=== PATIENT | female | born 1950 | race Caucasian/White ===

== ENCOUNTER 2017-08-23 07:38 | Day surgery (SDC) | payer MEDICARE, MEDICAID ==
[~2017-08-23] VITALS: Ht 157.5 cm; Wt 58.6 kg
[~2017-08-23 07:38] MED LIST: AMLO2.5T2 PO; APIX2.5T PO; CHOL100046 PO; DOXA4TAB3 PO; FURO40TA4 PO; LOSA50TA3 PO; METO100T14 PO; POTA20TA19 PO; ROSU20TA PO; SIMV20TA5 PO; SPIR100T PO
[2017-08-23] MEDS ORDERED: LIDOcaine 1%/PF 5ML 10 MG/ML VIAL SQ ONE (08:00)
[2017-08-23] MEDS ORDERED: albumin (human) 25% 100 ML IV solution IV PRN (08:10)
[2017-08-23] MEDS ORDERED: normal saline 1000ml 1,000 ML IV PRN (08:10)
[2017-08-23 08:30] VITALS: BP 147/88
[2017-08-23 08:43] VITALS: BP 147/88
[2017-08-23 08:45] VITALS: BP 135/64
[2017-08-23 08:53] VITALS: BP 137/86
== END 2017-08-23 09:00 | disposition home or self-care (01) ==
LOC: SSTAY O 07:38
PROVIDERS: ATTEND Radiology Vascular & Interventional Radiology
DX: R18.8 Other ascites (principal); I48.91 Unspecified atrial fibrillation; I11.0 Hypertensive heart disease with heart failure; I50.9 Heart failure, unspecified; E78.00 Pure hypercholesterolemia, unspecified; I27.20 Pulmonary hypertension, unspecified; I07.1 Rheumatic tricuspid insufficiency; Z90.710 Acquired absence of both cervix and uterus; Z79.01 Long term (current) use of anticoagulants; Z90.49 Acquired absence of other specified parts of digestive tract; Z98.890 Other specified postprocedural states; Z79.899 Other long term (current) drug therapy
CPT/HCPCS: 49083; A6257; J2001; J7030; A6258

== ENCOUNTER 2017-10-03 07:48 | Day surgery (SDC) | payer MEDICARE, MEDICAID ==
[2017-10-03] VITALS (8 sets, daily range): BP systolic 114–156; BP diastolic 58–94
[~2017-10-03] VITALS: Ht 157.5 cm; Wt 57.8 kg
[~2017-10-03 07:48] MED LIST changes: -SIMV20TA5 PO; -SPIR100T PO
[2017-10-03] MEDS ORDERED: LIDOcaine 1%/PF 5ML 10 MG/ML VIAL SQ ONE (08:00)
[2017-10-03] MEDS ORDERED: albumin (human) 25% 100 ML IV solution IV PRN (08:30)
[2017-10-03] MEDS ORDERED: normal saline 1000ml 1,000 ML IV PRN (08:30)
== END 2017-10-03 09:20 | disposition home or self-care (01) ==
LOC: SSTAY O 07:48
PROVIDERS: ATTEND Radiology Diagnostic Radiology
DX: R18.8 Other ascites (principal); I11.0 Hypertensive heart disease with heart failure; I50.9 Heart failure, unspecified; E78.00 Pure hypercholesterolemia, unspecified; I27.20 Pulmonary hypertension, unspecified; I48.2 Chronic atrial fibrillation; M19.90 Unspecified osteoarthritis, unspecified site; I08.1 Rheumatic disorders of both mitral and tricuspid valves; Z90.710 Acquired absence of both cervix and uterus; Z79.01 Long term (current) use of anticoagulants; Z90.49 Acquired absence of other specified parts of digestive tract; Z88.8 Allergy status to other drugs, medicaments and biological substances; Z79.899 Other long term (current) drug therapy; Z98.890 Other specified postprocedural states
CPT/HCPCS: 49083; J2001; J7030

== ENCOUNTER 2018-06-07 07:42 | Day surgery (SDC) | payer MEDICARE, MEDICAID ==
[~2018-06-07] VITALS: Ht 157.5 cm; Wt 58.4 kg
[~2018-06-07 07:42] MED LIST changes: -ROSU20TA PO; +ROSU20TA2 PO
[2018-06-07 08:00] VITALS: BP 163/99
[2018-06-07] MEDS ORDERED: normal saline 1000ml 1,000 ML IV PRN (08:00)
[2018-06-07] MEDS ORDERED: albumin 25% 100mL bottle x 1 IV PRN (08:00)
--- NOTE | 2018-06-07 08:50 | NUR ---
ULTRASOUND OF ABDOMEN BY Phoebe PANDYA. NO FLUID PER Phoebe PANDYA. ULTRASOUND ONLY. PARACENTESIS CANCELED AND PATIENT D/ONEIL HOME. NO DISTRESS NOTED.
[2018-06-07] MEDS ORDERED: LIDOcaine 1% 30ml preserv. free vial SQ ONE (10:00)
== END 2018-06-07 09:00 | disposition home or self-care (01) ==
LOC: SSTAY O 07:42
PROVIDERS: ATTEND Radiology Vascular & Interventional Radiology
DX: R18.8 Other ascites (principal); Z53.8 Procedure and treatment not carried out for other reasons
CPT/HCPCS: 76705; J3490; J7030

== ENCOUNTER 2022-01-25 10:26 | Day surgery (SDC) | payer MEDICARE, MEDICAID ==
[~2022-01-25] VITALS: Ht 157.5 cm; Wt 59.4 kg
[2022-01-25] VITALS (7 sets, daily range): BP systolic 125–179; BP diastolic 74–92
[~2022-01-25 10:26] MED LIST changes: +POTA-207 PO; -POTA20TA19 PO; -ROSU20TA2 PO
[2022-01-25] MEDS ORDERED: LORazepam 0.5 MG tablet PO PRN (10:55)
[2022-01-25] MEDS ORDERED: normal saline 1,000 ML IV SCH (10:55)
[2022-01-25] MEDS ORDERED: ROSU20TA31 PO (11:00)
[2022-01-25 11:35] LABS: APTT 30 SECONDS (22-32)
[2022-01-25] MEDS ORDERED: FENTANYL CITRATE/PF 50 MCG/1 ML VIAL ONE (14:11)
[2022-01-25] MEDS ORDERED: midazolam 1 mg/ML 2ml injection ONE (14:11)
[2022-01-25] MEDS ORDERED: LIDOcaine 1% 30ml preserv. free vial ONE (14:11)
[2022-01-26 06:30] LABS: ISTAT Hct MIX 38 %PCV (35-45); ISTAT O2 SATURATION MIX VENOUS 65 % (60-80); ISTAT SOURCE VEN
== END 2022-01-25 17:10 | disposition home or self-care (01) ==
LOC: SSTAY O 10:26
PROVIDERS: ATTEND Student in an Organized Health Care Education/Training Program
DX: I11.0 Hypertensive heart disease with heart failure (principal); I50.20 Unspecified systolic (congestive) heart failure; I27.20 Pulmonary hypertension, unspecified; E78.5 Hyperlipidemia, unspecified; Z79.899 Other long term (current) drug therapy; Z98.890 Other specified postprocedural states
CPT/HCPCS: 33289; 36415; 82803; 85014; 85610; 85730; 93005; C1751; C1769; C1894; C2624; J1644; J2250; J3010; J3490; J7030; 99152; 99153; A6258; A6449

== ENCOUNTER 2022-08-10 11:54 | Emergency (ER) | payer MEDICARE, MEDICAID ==
[~2022-08-10] VITALS: Ht 157.5 cm; Wt 65.0 kg
[~2022-08-10 11:54] MED LIST changes: -AMLO2.5T2 PO; -DOXA4TAB3 PO; -LOSA50TA3 PO; +ROSU20TA73 PO
[2022-08-10 12:10] VITALS: BP 166/91
[2022-08-10] MEDS ORDERED: loperamide 2mg capsule PO ONE (12:55)
[2022-08-10] MEDS ORDERED: LOPE1TAB46 PO (13:43)
== END 2022-08-10 13:48 | disposition home or self-care (01) ==
LOC: ER 11:54
DX: R19.7 Diarrhea, unspecified (principal); Z90.49 Acquired absence of other specified parts of digestive tract; Z79.899 Other long term (current) drug therapy
CPT/HCPCS: 99282

== ENCOUNTER 2022-09-13 10:23 | Day surgery (SDC) | payer MEDICARE, MEDICAID ==
[2022-09-09 09:25] LABS: BASOPHILS # (AUTO) 0.1 X10'3 (0-0.2); BASOPHILS % (AUTO) 1.1 % (0-1); EOSINOPHILS # (AUTO) 0.1 X10'3 (0-0.9); EOSINOPHILS % (AUTO) 1.9 % (0-6); HEMATOCRIT 38.6 % (35.0-45.0); HEMOGLOBIN 12.9 g/dl (12.0-16.0); LYMPHOCYTES # (AUTO) 1.7 X10'3 (1.1-4.8); LYMPHOCYTES % (AUTO) 30.3 % (21-51); MEAN CORPUSCULAR HEMOGLOBIN 30.5 PG (27.0-31.0); MEAN CORPUSCULAR HGB CONC 33.4 g/dL (33.0-36.5); MEAN CORPUSCULAR VOLUME 91.4 FL (78-98); MEAN PLATELET VOLUME 8.2 FL (7.4-10.4); MONOCYTES # (AUTO) 0.4 X10'3 (0-0.9); MONOCYTES % (AUTO) 6.9 % (2-12); NEUTROPHILS # (AUTO) 3.4 X10'3 (1.8-7.7); NEUTROPHILS % (AUTO) 59.8 % (42-75); PLATELET COUNT 121 X10'3 (140-440); RED BLOOD COUNT 4.22 X10'6 (4.20-5.60); RED CELL DISTRIBUTION WIDTH 14.3 % (11.5-14.5); WHITE BLOOD COUNT 5.7 X10'3 (4.5-11.0)
[2022-09-09 09:36] LABS: APTT 36 SECONDS (22-32)
[2022-09-09 09:39] LABS: ALBUMIN 4.1 G/DL (3.4-5.0); ANION GAP 12 (8-16); BLOOD UREA NITROGEN 23 MG/DL (7-18); BUN/CREATININE RATIO 24.2 (10.0-20.0); CALCIUM 9.2 MG/DL (8.5-10.1); CHLORIDE 106 MMOL/L (99-107); CHOL/HDL RATIO 1.8 (0.00-4.99); CHOLESTEROL 110 MG/DL (0-200); CREATININE 0.95 MG/DL (0.40-0.90); HDL CHOLESTEROL 60 MG/DL (35-60); LDL CHOLESTEROL 42 MG/DL (50-100); POTASSIUM 3.8 MMOL/L (3.5-5.1); SODIUM 141 MMOL/L (135-145); TOTAL CARBON DIOXIDE 23.4 MMOL/L (24-32); TRIGLYCERIDES 61 MG/DL (20-135); eGFR 58 ML/MIN
[2022-09-09 09:40] LABS: GLUCOSE 123 MG/DL (70-104)
[~2022-09-13] VITALS: Ht 157.5 cm; Wt 57.8 kg
[2022-09-13] VITALS (7 sets, daily range): BP systolic 98–142; BP diastolic 59–90; PULSE 60–87; RESP 15–17; TEMP 97.4; O2SAT 94–100
[~2022-09-13 10:23] MED LIST changes: +LOPE1TAB46 PO
[2022-09-13] MEDS ORDERED: normal saline 1,000 ML IV SCH (10:40)
[2022-09-13] MEDS ORDERED: LORazepam 0.5 MG tablet PO PRN (10:40)
[2022-09-13] MEDS ORDERED: diphenhydrAMINE 25mg capsule PO PRN (10:40)
[2022-09-13] MEDS ORDERED: SACU1TAB4 PO (10:46)
[2022-09-13] MEDS ORDERED: verapamil 2.5 mg/ml inj IV ONE (12:00)
[2022-09-13] MEDS ORDERED: heparin 1,000unit/ml 10ml vial 10 ML ONE (12:00)
[2022-09-13] MEDS ORDERED: fentaNYL/PF 50MCG/1 ML 2ML syringe ONE ×2 (12:00→13:31)
[2022-09-13] MEDS ORDERED: iohexol 350MG/ML 100ml bottle IV ONE (12:00)
[2022-09-13] MEDS ORDERED: nitroGLYCERIN-Tridil 50MG/D5W 250 ML IV ONE (12:00)
[2022-09-13] MEDS ORDERED: midazolam 1 mg/ML 2ml injection ONE ×2 (12:00→13:31)
[2022-09-13] MEDS ORDERED: LIDOcaine 1% (10mg/ml) 2ml vial ONE (12:00)
[2022-09-13] MEDS ORDERED: LIDOcaine 1% 30ml preserv. free vial ONE (13:31)
[2022-09-13] MEDS ORDERED: proCHLORperazine 10 MG/2 ml inj IV PRN (14:50)
[2022-09-13] MEDS ORDERED: HYDROcodone/acetaminophen 5mg/325mg tablet PO PRN (14:50)
[2022-09-13] MEDS ORDERED: ondansetron/PF 4mg/2ml inj IV PRN (14:50)
[2022-09-13] MEDS ORDERED: HYDROcodone/acetaminophen 10/325mg tab PO PRN (14:50)
== END 2022-09-13 16:10 | disposition home or self-care (01) ==
LOC: SSTAY O 10:23
PROVIDERS: ATTEND Student in an Organized Health Care Education/Training Program
DX: I08.1 Rheumatic disorders of both mitral and tricuspid valves (principal); I27.20 Pulmonary hypertension, unspecified; I48.91 Unspecified atrial fibrillation; I65.29 Occlusion and stenosis of unspecified carotid artery; I11.0 Hypertensive heart disease with heart failure; I50.9 Heart failure, unspecified; E78.5 Hyperlipidemia, unspecified; Z79.01 Long term (current) use of anticoagulants; Z79.899 Other long term (current) drug therapy
CPT/HCPCS: 36415; 80048; 80061; 85025; 85610; 85730; 93005; 93458; 99152; 99153; A6258; J1644; J2250; J3010; J3490; J7030; Q0163; Q9967; A6402; C1760; C1894

== ENCOUNTER 2022-10-14 08:00 | Outpatient (CLI) | payer MEDICARE, MEDICAID ==
[~2022-10-14 08:00] MED LIST changes: -LOPE1TAB46 PO; +SACU1TAB4 PO
[2022-10-14 14:27] LABS: BILIRUBIN,URINE NEGATIVE (Neg); CLARITY,URINE CLEAR (Clear); COLOR,URINE STRAW (Yellow); GLUCOSE, URINE NEGATIVE (Neg); KETONES,URINE NEGATIVE (Neg); LEUKOCYTE ESTERASE ,URINE NEGATIVE (Neg); NITRITES, URINE NEGATIVE (Neg); OCCULT BLOOD,URINE TRACE-INTACT (Neg); PH,URINE 5.5 (4.8-8.0); PROTEIN,URINE NEGATIVE (Neg); UA COLLECTION TYPE CLN CATCH MIDSTREAM; UROBILINOGEN,URINE 0.2 E.U/dL (0.2-1.0)
[2022-10-14 14:29] LABS: BASOPHILS % (AUTO) 0.8 % (0-1); EOSINOPHILS # (AUTO) 0.1 X10'3 (0-0.9); EOSINOPHILS % (AUTO) 1.3 % (0-6); LYMPHOCYTES # (AUTO) 1.5 X10'3 (1.1-4.8); LYMPHOCYTES % (AUTO) 28.3 % (21-51); MEAN CORPUSCULAR HEMOGLOBIN 30.4 PG (27.0-31.0); MEAN CORPUSCULAR HGB CONC 33.3 g/dL (33.0-36.5); MEAN CORPUSCULAR VOLUME 91.5 FL (78-98); MEAN PLATELET VOLUME 7.9 FL (7.4-10.4); MONOCYTES # (AUTO) 0.3 X10'3 (0-0.9); NEUTROPHILS # (AUTO) 3.3 X10'3 (1.8-7.7); NEUTROPHILS % (AUTO) 63.6 % (42-75); PRE OP HEMATOCRIT 39.7 % (35.0-45.0); PRE OP HEMOGLOBIN 13.2 g/dL (12.0-16.0); PRE OP PLATELET COUNT 122 X10'3 (140-440); PRE OP WHITE BLOOD COUNT 5.2 10'3 (4.8-10.8); RED BLOOD COUNT 4.34 X10'6 (4.20-5.60); RED CELL DISTRIBUTION WIDTH 14.8 % (11.5-14.5)
[2022-10-14 14:34] LABS: BACTERIA,URINE FEW /HPF (Neg); HYALINE CASTS 0-3 /LPF (NEGATIVE); MUCUS STRANDS NONE SEEN /LPF (Neg); RBC,URINE 0-2 /HPF (0-2); SQUAMOUS EPITHELIAL CELL,UR FEW /LPF (FEW); WBC,URINE 0-4 /HPF (0-4)
[2022-10-14 14:40] LABS: PRE OP INR 1.1 INR; PRE OP PROTIME 11.7 SECONDS (9.0-12.0)
[2022-10-14 14:42] LABS: ALBUMIN 4.4 G/DL (3.4-5.0); ALBUMIN/GLOBULIN RATIO 1.1 (1.1-1.5); ALKALINE PHOSPHATASE 193 IU/L (46-116); BLOOD UREA NITROGEN 24 MG/DL (7-18); BUN/CREATININE RATIO 25.3 (10.0-20.0); CALCIUM 9.2 MG/DL (8.5-10.1); CHLORIDE 104 MMOL/L (99-107); CREATININE 0.95 MG/DL (0.40-0.90); PRE OP ALT 19 U/L (30-65); PRE OP ANION GAP 15 (8-16); PRE OP AST 24 U/L (10-37); PRE OP BILIRUB, TOTAL 1.1 MG/DL (0.0-1.0); PRE OP POTASSIUM 3.9 MMOL/L (3.4-5.1); PRE OP SODIUM 141 MMOL/L (135-145); TOTAL CARBON DIOXIDE 22.4 MMOL/L (24-32); TOTAL PROTEIN 8.4 G/DL (6.4-8.2); eGFR 58 ML/MIN
[2022-10-14 14:43] LABS: HEMOGLOBIN A1C 5.7 % (4.5-6.2)
[2022-10-14 14:48] LABS: PRE OP GLUCOSE 108 MG/DL (70-104)
[2022-10-18 06:27] LABS: ABG BASE EXCESS -5.4 mmol/L (-2.0-2.0); ABG HCO3 17.6 mmol/L (22.0-26.0); ABG OXYGEN SATURATION 97.9 % (94-97); ABG PCO2 (T) 27.9 mmHg (32.0-45.0); ABG PH (T) 7.417 (7.350-7.450); FCOHb 0.2 % (0.0-3.9); FHHb 2.1 % (0.0-5.0); FMetHb 0.2 % (0.0-1.5); FO2Hb 97.5 % (94-97); MODE ROOM AIR; TOTAL HEMOGLOBIN 13.9 G/dl (12.0-16.0)
== END 2022-10-14 23:00 | disposition home or self-care (01) ==
LOC: LAB 08:00 → EDSTATUS 10-19 08:30 → LAB 10-19 11:55
PROVIDERS: ATTEND Thoracic Surgery (Cardiothoracic Vascular Surgery)
DX: Z01.818 Encounter for other preprocedural examination (principal); I31.39 Other pericardial effusion (noninflammatory); I70.0 Atherosclerosis of aorta; M47.814 Spondylosis without myelopathy or radiculopathy, thoracic region; I65.23 Occlusion and stenosis of bilateral carotid arteries; I48.91 Unspecified atrial fibrillation; I07.1 Rheumatic tricuspid insufficiency; Z79.899 Other long term (current) drug therapy
CPT/HCPCS: 36415; 36600; 71046; 71250; 80053; 81001; 82803; 83036; 85018; 85025; 85610; 85730; 86885; 86900; 86901; 86920; 87081; 93005; 93880; 94010; 94760